=== PATIENT | female | born 1950 | race Caucasian/White ===

== ENCOUNTER → 2017-07-21 | Outpatient (CLI) | payer BC | LOC: BRMIMAGING 15:04 | PROVIDERS: ATTEND Family Medicine | DX: Z13.820 Encounter for screening for osteoporosis (principal) ==

== ENCOUNTER → 2017-09-20 | Outpatient (CLI) | payer BC | LOC: BRMIMAGING 12:18 | PROVIDERS: ATTEND Physician Assistant Medical | DX: G47.34 Idiopathic sleep related nonobstructive alveolar hypoventilation (principal) | CPT/HCPCS: 71020-PO ==

== ENCOUNTER → 2018-01-09 | Outpatient (CLI) | payer BC | LOC: BRMIMAGING 14:07 | PROVIDERS: ATTEND Internal Medicine | DX: M25.841 Other specified joint disorders, right hand (principal); M25.842 Other specified joint disorders, left hand; M19.071 Primary osteoarthritis, right ankle and foot; M19.072 Primary osteoarthritis, left ankle and foot; M77.31 Calcaneal spur, right foot; M77.32 Calcaneal spur, left foot | CPT/HCPCS: 73130-PO; 73630-PO ==

== ENCOUNTER 2018-02-13 12:30 | Inpatient (IN) | payer BC, OTHER ==
[2018-03-27] MEDS ORDERED: LR 1,000 ML IV ONE (11:19)
[2018-03-27] MEDS ORDERED: CLINDAMYCIN 900 MG/DEXTROSE 50 ML IV ONE (11:19)
--- NOTE | 2018-03-27 12:15 | PDHPUP ---
History & Physical Update H&P update statement: This history and physical update is based on an assessment of the patient which was completed after admission or registration (within 24 hours), but prior to the surgery/procedure. H&P update: H&P reviewed & patient examined, no change in patient's condition since H&P completed
[2018-03-27] MEDS ORDERED: ROPIVACAINE HCL 150 MG/30 ML INJ ONE (12:32)
--- NOTE | 2018-03-27 12:32 | PDANEPAE ---
ANE Past Medical History - Cardiovascular History Hx Hypertension: Yes Hx Arrhythmias: No Hx Chest Pain: No Hx Coronary Artery / Peripheral Vascular Disease: No Hx CHF / Valvular Disease: No Hx Palpitations: No - Pulmonary History Hx COPD: No Hx Asthma/Reactive Airway Disease: No Hx Recent Upper Respiratory Infection: No Hx Oxygen in Use at Home: No Hx Sleep Apnea: Yes Sleep Apnea Screening Result - Last Documented: Positive - Neurologic History Hx Cerebrovascular Accident: No Hx Seizures: No Hx Dementia: No - Endocrine History Hx Diabetes: No - Renal History Hx Renal Disorders: No - Liver History Hx Hepatic Disorders: No - Neurological & Psychiatric Hx Hx Neurological and Psychiatric Disorders: Yes Neurological / Psychiatric History Comment: ESSENTIAL TREMOR - Cancer History Hx Cancer: No - Congenital Disorder History Hx Congenital Disorders: No - GI History Hx Gastrointestinal Disorders: Yes Gastrointestinal History Comment: HIATAL HERNIA - Other Health History Other Health History: NEG - Chronic Pain History Chronic Pain: Yes (ANKLE & R KNEE) - Surgical History Prior Surgeries: R TKA 2016. L TKA 2009. HYSTERECTOMY 1990. TONSILLECTOMY ANE Review of Systems Review of Systems: - Exercise capacity METS (RN): 4 METS ANE Patient History - Allergies Allergies/Adverse Reactions: SPRING Inhibitors Allergy (Verified 01/16/18 13:18) Swelling/neck,face,throat amoxicillin Allergy (Verified 01/16/18 13:18) Swelling/neck,face,throat - Home Medications Home Medications: Aspirin [Aspirin 81mg (*)] 81 mg PO HS 01/16/18 [Last Taken 03/26/18] Cyanocobalamin [Vitamin B12 (*)] 1,000 mcg PO DAILY 01/16/18 [Last Taken ] Herbals/Supplements -Info Only 1 ea PO DAILY 01/16/18 [Last Taken 03/20/18] Losartan/Hydrochlorothiazide [Losartan-Hctz 100-25 mg Tab] 1 each PO DAILY 01/16 [Last Taken 03/20/18] Multivitamins [Multivitamin (*)] 1 each PO DAILY 01/16/18 [Last Taken 03/20/18] Omeprazole 40 mg PO HS 01/16/18 [Last Taken 03/26/18] Pravastatin Sodium 60 mg PO HS 01/16/18 [Last Taken 03/26/18] Primidone [Primidone 250mg (*)] 250 mg PO BID 01/16/18 [Last Taken 03/27/18] Topiramate [Trokendi Xr] 25 mg PO HS 01/16/18 [Last Taken 03/26/18] amLODIPine BESYLATE [Norvasc 5 mg (*)] 5 mg PO DAILY 01/16/18 [Last Taken ] DULoxetine [Cymbalta 60 MG (*)] 60 mg PO DAILY 02/26/18 [Last Taken 03/27/18] - NPO status NPO Since - Liquids (Date): 03/26/18 NPO Since - Liquids (Time): 21:45 NPO Since - Solids (Date): 03/26/18 NPO Since - Solids (Time): 21:45 - Smoking Hx Smoking Status: Former smoker - Family Anes Hx Family Hx Anesthesia Complications: NEG ANE Labs/Vital Signs - Vital Signs Blood Pressure: 179/89 Heart Rate: 68 Respiratory Rate: 14 O2 Sat (%): 91 Height: 168.91 cm Weight: 90.718 kg ANE Physical Exam - Airway Mallampati Score: Class 3 - ASA Status ASA Status: II ANE Anesthesia Plan Anesthesia Plan: GA w LMA Regional Anesthesia: continuous NB
[2018-03-27] MEDS ORDERED: MIDAZOLAM 2 MG/2 ML VIAL ONE (12:33)
[2018-03-27] MEDS ORDERED: fentaNYL 100 MCG/2 ML INJ ONE ×3 (12:33→15:10)
[2018-03-27] MEDS ORDERED: BUPIVACAINE 0.5% 30 ML SDV ONE (12:36)
[2018-03-27] MEDS ORDERED: PROPOFOL 200 MG/20 ML VIAL ONE (12:59)
[2018-03-27] MEDS: CLINDAMYCIN 900 MG/DEXTROSE 50 ML IV ONE (13:09)
[2018-03-27] MEDS ORDERED: LIDOCAINE 2% JELLY 5 ML TUBE ONE (13:14)
[2018-03-27] MEDS ORDERED: DEXAMETHASONE 4 MG/ML VIAL ONE ×2 (13:14)
[2018-03-27] MEDS ORDERED: METOCLOPRAMIDE 10 MG/2 ML VIAL ONE (13:14)
[2018-03-27] MEDS ORDERED: ONDANSETRON 4 MG/2 ML VIAL ONE (13:14)
[2018-03-27] MEDS ORDERED: ROPIVACAINE 0.2% 1,100 MG in PUMP SET 1 EA NB SCH ×2 (14:00→16:09)
--- NOTE | 2018-03-27 15:58 | POSTOPPROG ---
Post Op Note Date of Operation: 03/27/18 Surgeon: Paras Zuluaga Hoister: Jhon Anesthesiologist: Alise Anesthesia: GET(General Endotracheal) Pre-op Diagnosis: L ankle djd, hallux rigidus Post-op Diagnosis: same Indication: above Procedure: L TAA, Cartiva, 1st tmt osteophyte exsicsion Inf/Abcess present in the surg proc area at time of surgery?: No EBL: 50-100
[2018-03-27] MEDS ORDERED: oxyCODONE IR 5 MG TAB PO PRN (16:03)
[2018-03-27] MEDS ORDERED: HYDROmorphONE/DILAUDID 1 MG/ML INJ IVP PRN (16:03)
[2018-03-27] MEDS ORDERED: ONDANSETRON 4 MG/2 ML VIAL IVP PRN (16:05)
[2018-03-27] MEDS ORDERED: HYDROmorphONE/DILAUDID 2 MG/ML INJ IVP PRN (16:05)
[2018-03-27] MEDS ORDERED: LR 500 ML IV PRN (16:05)
[2018-03-27] MEDS ORDERED: PROMETHAZINE HCL 25 MG/ML INJ IVP PRN (16:05)
[2018-03-27] MEDS ORDERED: fentaNYL 100 MCG/2 ML INJ IVP PRN (16:05)
[2018-03-27] MEDS ORDERED: NALOXONE HCL 0.4 MG/ML INJ IVP PRN (16:05)
--- NOTE | 2018-03-27 16:10 | POSTANESTH ---
Post Anesthetic Evaluation Cardiovascular Status: Normal, Stable Respiratory Status: Normal, Stable Level of Consciousness/Mental Status: Can Participate in Eval Pain Control: Adequate, Prn Tx Ordered Nausea/Vomiting Control: Adequate, Prn Tx Ordered Complications Possibly Related to Anesthesia: None Noted
[2018-03-27] MEDS ORDERED: NS 1,000 ML IV SCH (16:15)
--- NOTE | 2018-03-27 17:38 | PDMN ---
Medical Necessity Medical necessity: Patient meets inpatient criteria per physician note and [facility] Musculoskeletal Surgery or Procedure GRG (L ankle arthroplasty, CPT 51137/ Medicare inpatient-only surgery.)
[2018-03-27] MEDS: PRIMIDONE 250 MG TAB PO SCH (20:16)
--- NOTE | 2018-03-27 20:21 | GOP ---
[f rep st] OPERATIVE REPORT DATE OF OPERATION: 03/27/2018 SURGEON: Paras Zuluaga MD [employer] SUPERINTENDENT: Amos Ferreira SA. ANESTHESIA: General with popliteal and saphenous block. PREOPERATIVE DIAGNOSIS: 1. Left ankle degenerative joint disease. 2. Left hallux rigidus. 3. Left first tarsometatarsal joint degenerative joint disease with osteophyte. POSTOPERATIVE DIAGNOSIS: 1. Left ankle degenerative joint disease. 2. Left hallux rigidus. 3. Left first tarsometatarsal joint degenerative joint disease with osteophyte. PROCEDURE PERFORMED: FINDINGS: SPECIMENS: None. ESTIMATED BLOOD LOSS: 20 mL. INDICATIONS: This 67-year-old female with significant degenerative joint disease of her ankle, great toe and tarsometatarsal joint. She elected for the above procedure. We discussed alternatives including fusions, nonoperative treatment, she had failed. She elected to proceed. Informed consent obtained, questions answered, marked preoperatively. Discussed the risks of nerve injury, blood clots, vessel injury, loosening, failure of the implants, need for revision, and she elected to proceed. DESCRIPTION OF PROCEDURE: The patient was taken to the preoperative suite, sterilely prepped in normal fashion. Time-out was performed verifying the site , side, location, and there was agreement with the team. Incision was made over the ankle anteriorly. I protected the neurovascular structures between the tibia and EHL, protecting the deep neurovascular bundle, exposing the ankle. I released a small portion of the deltoid to help correct the deformity. I removed the soft tissue from the front of the ankle. I placed a Prophecy guide on the tibia and pinned this, checked this fluoroscopically and liked the alignment. I then placed the cutting block on these guide pins into place. I then made the tibial cuts with at the top and the medial and lateral side and removed this bone. There was some concern of a pin going posterior. I did Doppler the tibial artery at the end and this was patent and flowing well. It showed good vascularity during the case as well. After I had cleaned out the tibial bone, I placed the Prophecy guide on the talus and pinned this in place, checked this fluoroscopically and selected the guide for the flat cut. I made this. I then used trial implants, selected a size 3 of each and a 6mm poly. Placed tibial tray and made the peg holes for this. I then placed the talar implant and made the pedicles for this, placed the guide pin in the center hole and made the reamer hole. I then malleted the final tibial implant into place and achieved good fixation of this. I then malleted the talar implant in place to achieve good position, put the poly in with the naval engineer and this locked into place. She had good range of motion, the ankle is stable. Gutters were cleaned and debrided. I made an incision over the great toe and 1st ray, dissected down to the 1st metatarso-phalangeal joint. There were significant osteophytes, which were removed with a saw and performed cheilectomy. Exposed joint, was severely arthritic. I placed a central guide pin, check this fluoroscopically, reamed for a 10 Cartiva leaving this proud, placed the Cartiva implant in this. This did sit appropriately proud. She had good range of motion of the toe and good distraction of the arthroplasty site. I then used a chisel to remove the osteophyte of the 1st tarsometatarsal joint, completing the arthroplasty of this joint. I smoothed this over, placed bone wax, let the tourniquet down, hemostasis was obtained. she had good vascularity. Closed with 0 Vicryl, 2-0 Vicryl, 3-0 Vicryl, Dermabond. She was taken to PACU in stable condition. PROCEDURES PERFORMED: 1. Left total ankle arthroplasty. 2. Left ankle Cartiva procedure with cheilectomy. 3. Left dorsal midfoot osteophyte excision. IMPLANTS: 1. Cool Containers Infinity total ankle, size 3 tibia, size 3 talus and 6 mm poly. 2. 10 mm Cartiva in the big toe. COMPLICATIONS: None. DRAINS: None. CONDITION: Stable. /[id number]/MODL MTDD
[2018-03-27] MEDS ORDERED: NON-FORMULARY NEW DRUG (Omeprazole [Omeprazole] 40 MG) PO SCH (21:00)
[2018-03-27] MEDS ORDERED: PRAVASTATIN SODIUM 40 MG TAB PO SCH (21:00)
[2018-03-27] MEDS ORDERED: ASPIRIN 81 MG CHEWABLE TAB PO SCH (21:00)
[2018-03-27] MEDS ORDERED: PANTOPRAZOLE SODIUM 40 MG TAB PO SCH (21:00)
[2018-03-27] MEDS ORDERED: TOPIRAMATE 25 MG PO SCH (21:00)
[2018-03-27] MEDS: CLINDAMYCIN 600 MG/DEXTROSE 50 ML IV SCH (21:57)
[2018-03-28] MEDS: CLINDAMYCIN 600 MG/DEXTROSE 50 ML IV SCH (05:26)
--- NOTE | 2018-03-28 06:51 | SOAPPROG ---
SOAP Progress Note Assessment/Plan: Assessment: Katherine mcfarlane Plan: non wt bearing left leg elevate ice keep dry home today 03/28/18 06:50 Subjective: no pain Objective: Vital Signs Temp Pulse Resp BP Pulse Ox 36.8 C 72 18 148/75 H 92 03/28/18 04:00 03/28/18 04:00 03/28/18 04:00 03/28/18 04:00 03/28/18 04:00 03/27/18 03/28/18 03/29/18 05:59 05:59 05:59 Intake Total 2034 Output Total 660 Balance 1375 good cap refill splint intact ICD10 Worksheet Patient Problems: Problems Problem Status Onset Degenerative joint disease, ankle, left Acute - ICD10 Problem Qualifiers (1) Degenerative joint disease, ankle, left Qualifiers: Osteoarthritis type: primary Qualified Code(s): M19.072 - Primary osteoarthritis, left ankle and foot
[2018-03-28 07:48] VITALS: BP 138/74
[2018-03-28] MEDS ORDERED: DULoxetine 60 MG CAP PO SCH (09:00)
[2018-03-28] MEDS ORDERED: CYANO/VITAMIN B12 1000 MCG TAB PO SCH (09:00)
[2018-03-28] MEDS: PRIMIDONE 250 MG TAB PO SCH (09:41)
[2018-03-28] MEDS: amLODIPine BESYLATE 5 MG TAB PO SCH ×2 (09:42→09:43)
--- NOTE | 2018-03-28 10:06 | PDIAF ---
- Diagnosis Diagnosis: ankle djd Code Status: Full Code - Medication Management Discharge Medications: Medications to Continue on Transfer Aspirin [Aspirin 81mg (*)] 81 mg PO HS 01/16/18 [Last Taken 03/26/18] Cyanocobalamin [Vitamin B12 (*)] 1,000 mcg PO DAILY 01/16/18 [Last Taken ] Herbals/Supplements -Info Only 1 ea PO DAILY 01/16/18 [Last Taken 03/20/18] Losartan/Hydrochlorothiazide [Losartan-Hctz 100-25 mg Tab] 1 each PO DAILY 01/16 [Last Taken 03/20/18] Multivitamins [Multivitamin (*)] 1 each PO DAILY 01/16/18 [Last Taken 03/20/18] Omeprazole 40 mg PO HS 01/16/18 [Last Taken 03/26/18] Pravastatin Sodium 60 mg PO HS 01/16/18 [Last Taken 03/26/18] Primidone [Primidone 250mg (*)] 250 mg PO BID 01/16/18 [Last Taken 03/27/18] Topiramate [Trokendi Xr] 25 mg PO HS 01/16/18 [Last Taken 03/26/18] amLODIPine BESYLATE [Norvasc 5 mg (*)] 5 mg PO DAILY 01/16/18 [Last Taken ] DULoxetine [Cymbalta 60 MG (*)] 60 mg PO DAILY 02/26/18 [Last Taken 03/27/18] oxyCODONE IR [Oxycodone Ir (*)] 5 - 10 mg PO Q4HRS PRN tab 03/28/18 [Last Taken Unknown] Discharge Medications: Refer to the Discharge Home Medication list for PRN reason. - Orders Services needed: Home Care, Physical Therapy, Occupational Therapy Home Care Face to Face: I certify that this patient was under my care and that I had the required [id number] encounter meeting the encounter requirements on the discharge day. My findings support the fact that the patient is homebound as defined in Home Care Face to Face Continued: CMS Chapter 7 Medicare Benefits Manual 30.1.1 , The condition of the patient is such that there exists a normal inability to leave home and consequently, leaving home would require a considerable and taxing effort. Diet Recommendation: no restrictions on diet Diet Texture: Regular Texture Diet Additional Instructions: non wt bearing left leg elevate ice keep dry - Follow Up Care Current Providers and Referrals: MACRINA PABLO [Primary Care Provider] - Paras Zuluaga MD [Medical Doctor] - follow up in 10 days
--- NOTE | 2018-03-28 11:36 | SOAPPROG ---
SOAP Progress Note Assessment/Plan: Assessment: Post-op day 1, continuos popliteal nerve block catheter in place, 8cc/hr. Pt very comfortable. Plan:Discharge today with pnb pump. Gave pt instructions on adjusting rate and discontinuation of catheter. 03/28/18 11:33 Objective: Vital Signs Temp Pulse Resp BP Pulse Ox 36.9 C 81 15 138/74 H 96 03/28/18 07:47 03/28/18 07:47 03/28/18 07:47 03/28/18 09:43 03/28/18 07:47 03/27/18 03/28/18 03/29/18 05:59 05:59 05:59 Intake Total 2035 Output Total 660 Balance 1375 - Pending Discharge Pending Discharge Within 24 Hours: Yes Pending Discharge Date: 03/29/18 Pending Discharge Time: 11:00 ICD10 Worksheet Patient Problems: Problems Problem Status Onset Degenerative joint disease, ankle, left Acute
--- NOTE | 2018-03-28 12:10 | ASMTCMCOM ---
CM Note CM Note Notes: Pt medically stable for d/c with [facility] PT/OT. Orders sent in [employer]. Pt address/phone verified. Date Signed: 03/28/2018 12:09 PM Electronically Signed By:ALTA Rivera
--- NOTE | 2018-03-28 14:17 | ASDISCHSUM ---
Discharge Information Plan Status:Home with Home Health Medically Cleared to Leave: Discharge Date:03/28/2018 12:57 PM D/C Disposition:Home Health Service ADT D/C Disposition:Home, Routine, Self-Care Projected Discharge Date:03/28/2018 11:00 AM Transportation at D/C: Discharge Delay Reason: Follow-Up Date:03/28/2018 11:00 AM Discharge Slot: Final Diagnosis: Placement Information Referral Type:*Home Health Care Services Referral ID:[id number] Provider Name:[facility] Address 1:[address] [address] Address 2: City:[place] Selection Factors: State:[place] Patient Contact Information Contact Name:DARLING Relationship: Address:[address] [facility] [facility] [address] [facility] City:[place] Alternate Phone: State/Zip Code:[place] [address] Email: Financial Information Financial Class:HMO and PPO Plans Primary Plan Desc:H[employer] [place] [employer] Primary Plan Number:[id number] Secondary Plan Desc: Secondary Plan Number: Assessment Information [facility] CM Progress Note CM Note CM Note Notes: Pt medically stable for d/c with [facility] PT/OT. Orders sent in [facility]. Pt address/phone verified. Date Signed: 03/28/2018 12:09 PM Electronically Signed By:ALTA Rivera Intervention Information
--- NOTE | 2018-03-29 16:52 | GDS ---
[f rep st] DISCHARGE SUMMARY HOSPITAL COURSE: She was admitted to the hospital after undergoing a total ankle replacement, as wel l as a Cartiva and a midfoot dorsal osteophyte resection on the left. She did well. Her pain was co ntrolled. She was able to clear physical therapy. She met criteria for discharge. CONSULTING PHYSICIANS: None. PROCEDURES: As above with a left total ankle arthroplasty, Cartiva, and midfoot osteophyte excision. DISPOSITION: Home with home health and home physical therapy. She is sent home with a regular diet. She is sent home with an aspirin per day for DVT prophylaxis. She is given pain medications of oxy codone to take, as well as Zofran. She is starting her previous home medications. She will ice and elevate this. She will be nonweightbearing. She has a followup which was previously scheduled for h er 10 days after discharge and will call or come back if she has any chest pain, shortness of breath, or other concerns. /[id number]/MODL
== END 2018-03-28 12:57 | disposition home or self-care (01) | DRG 469 ==
LOC: F3N 03-27 10:54 → OBSVTOIN 03-27 16:03 → F3N 03-27 18:08
PROVIDERS: ADMIT Orthopaedic Surgery; ATTEND Orthopaedic Surgery
PROC: 0SU Lower Joints, Supplement (ICD-10-PCS; principal; 2018-03-27 12:30)
PROC: 0SBN0ZZ Excision of Left Metatarsal-Phalangeal Joint, Open Approach (ICD-10-PCS; principal; 2018-03-27 12:30)
PROC: 0SRG0JZ Replacement of Left Ankle Joint with Synthetic Substitute, Open Approach (ICD-10-PCS; principal; 2018-03-27 12:30)
PROC: 0SBL0ZZ Excision of Left Tarsometatarsal Joint, Open Approach (ICD-10-PCS; principal; 2018-03-27 12:30)
DX: M19.072 Primary osteoarthritis, left ankle and foot (principal); M20.22 Hallux rigidus, left foot; I10 Essential (primary) hypertension; G47.30 Sleep apnea, unspecified; G25.0 Essential tremor; Z96.653 Presence of artificial knee joint, bilateral
CPT/HCPCS: 97116-GP; 97162-GP; 97165-GO; 97535-GO; C1713; J1100; J2250; J2405; J2704; J2765; J2795; J3010